=== PATIENT | male | born 2000 | race American Indian/Alaskan Native ===

== ENCOUNTER 2019-08-22 20:28 | Emergency (ER) | payer SELFPAY ==
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
[2019-08-22 23:38] VITALS: BP 120/70
== END 2019-08-22 23:27 | disposition home or self-care (01) ==
LOC: ED 20:28
DX: S01.452A Open bite of left cheek and temporomandibular area, initial encounter (principal); Z79.1 Long term (current) use of non-steroidal anti-inflammatories (NSAID); Z79.2 Long term (current) use of antibiotics; W50.3XXA Accidental bite by another person, initial encounter; Y93.89 Activity, other specified; Y92.89 Other specified places as the place of occurrence of the external cause; Y99.8 Other external cause status; J45.909 Unspecified asthma, uncomplicated
CPT/HCPCS: 99282